=== PATIENT | female | born 1950 | race Caucasian/White ===

== ENCOUNTER 2024-06-02 05:38 | Inpatient (IN) ==
[~2024-06-02 05:38] MED LIST: HYDROmorphone 1 MG/1 ML SYRINGE IV PRN; Naloxone 0.4 mg VIAL 0.4 mg/ml 1 ml VIAL IV PRN; Ondansetron 4 mg VIAL 2 MG/ML 2 ml VIAL IV PRN; ROPIVACAINE 5 MG/ML 30 ML BTL (0.5%) ONE; fentaNYL 100 mcg/2 ml 50 MCG/ML VIAL IV PRN
[2024-06-02] MEDS ORDERED: ceFAZolin 2 GM PREMIX 2 GM/50 ML BAG ONE (06:15)
[2024-06-02 06:23] LABS: Rapid COVID-19 Molecular Undetected (Undetected)
[2024-06-02] MEDS: Lactated Ringers 1000 ml BAG 1,000 ML IV SCH ×2 (06:31→12:07)
[2024-06-02] MEDS: Scopolamine 1 mg/72hr PATCH TRANSDERM ONE (06:32)
[2024-06-02] MEDS: Buffered Lidocaine 1% SYRIN 1 ml INTRADERM ONE (06:33)
[2024-06-02] MEDS ORDERED: Midazolam 5 mg/5 ml VIAL 1 mg/ml 5 ml VIAL (5 mg) ONE (07:07)
[2024-06-02] MEDS ORDERED: fentaNYL 100 mcg/2 ml 50 MCG/ML VIAL ONE ×2 (07:08→07:09)
[2024-06-02] MEDS ORDERED: Propofol 10 MG/ML 20 ML BTL ONE (07:08)
[2024-06-02] MEDS ORDERED: Dexamethasone IV 4 MG/ML VIAL 1 ml VIAL ONE ×2 (07:08→07:30)
[2024-06-02] MEDS ORDERED: Bupivacaine 0.25% SDV 30 ML ONE (07:08)
[2024-06-02] MEDS ORDERED: Midazolam 2 mg/2 ml VIAL 1 mg/ml 2 ml VIAL (2 mg) ONE (07:09)
[2024-06-02] MEDS ORDERED: Ondansetron 4 mg VIAL 2 MG/ML 2 ml VIAL ONE (07:30)
[2024-06-02] MEDS ORDERED: Ondansetron 4 mg VIAL 2 MG/ML 2 ml VIAL IV PRN (07:37)
[2024-06-02] MEDS ORDERED: Lactulose 30 ml UDC PO PRN (07:37)
[2024-06-02] MEDS ORDERED: Magnesium Hydroxide LIQ 30 ML UDC PO PRN (07:37)
[2024-06-02] MEDS ORDERED: Calcium Carb (TUMS) 500 mg CHEW TAB PO PRN (07:37)
[2024-06-02] MEDS ORDERED: Morphine 2 MG/ML SYRINGE IV PRN (07:37)
[2024-06-02] MEDS ORDERED: Ondansetron ODT 4 mg TAB 4 MG TAB PO PRN (07:37)
[2024-06-02] MEDS: Acetaminophen IV 1 GM/100ML 1,000 MG/100 ML BAG IV ONE (10:57)
[2024-06-02] MEDS: Vitamin THERAPEUTIC TAB PO SCH (11:48)
[2024-06-02] MEDS: Magnesium Hydroxide LIQ 30 ML UDC PO SCH (12:06)
[2024-06-02] MEDS: ceFAZolin 2 GM PREMIX 2 GM/50 ML BAG IV SCH (15:39)
[2024-06-03 06:03] LABS: Hematocrit 29.7 % (35-45); Hemoglobin 10.4 g/dL (11.5-14.3); Mean Platelet Volume 6.8 fL (7.5-11.2); Platelet Count 223 10^3/uL (150-450)
[2024-06-03 06:56] LABS: Calcium 8.6 mg/dL (8.6-10.3); Creatinine, Serum 0.68 mg/dL (0.51-0.95); Potassium 3.9 mmol/L (3.5-5.0); eGFR CKD-EPI 91.9 (>60)
[2024-06-03] MEDS: Lactated Ringers 1000 ml BAG 500 ML IV ONE (09:06)
[2024-06-03 09:47] VITALS: BP 117/60
== END 2024-06-03 12:15 | disposition home or self-care (01) | DRG 941 ==
LOC: SSU 05:38 → OR 05:38
PROVIDERS: ADMIT Orthopaedic Surgery Adult Reconstructive Orthopaedic Surgery; ATTEND Orthopaedic Surgery Adult Reconstructive Orthopaedic Surgery